=== PATIENT | male | born 1990 | race Caucasian/White ===

== ENCOUNTER 2017-06-12 23:04 | Emergency (ER) | payer SELFPAY ==
[~2017-06-12] VITALS: Ht 188 cm; Wt 86.4 kg
[2017-06-13 01:37] VITALS: BP 140/80
== END 2017-06-13 02:43 | disposition left against medical advice (07) ==
LOC: EMS 23:07
DX: R51 Headache (principal); V89.2XXA Person injured in unspecified motor-vehicle accident, traffic, initial encounter; Y93.89 Activity, other specified; Y92.89 Other specified places as the place of occurrence of the external cause; Y99.8 Other external cause status; Z53.21 Procedure and treatment not carried out due to patient leaving prior to being seen by health care provider

== ENCOUNTER → 2020-09-02 | Outpatient (CLI) | payer OTHER ==
[2020-09-04 05:07] LABS: RUBELLA AB IGG-REFLAB 1.4 index (Immune >0.99); RUBEOLA (MEASLES) IGG >300.0 AU/mL (Immune >16.4)
== END | disposition home or self-care (01) ==
LOC: LABMN 13:18
PROVIDERS: ATTEND Internal Medicine
DX: Z02.1 Encounter for pre-employment examination (principal)
CPT/HCPCS: 86707; 86735; 86762; 86765; 86787